=== PATIENT | female | born 1955 | race Caucasian/White ===

== ENCOUNTER → 2018-08-30 | Outpatient (CLI) | payer OTHER ==
[~2018-08-30] MED LIST: ALLOPURINOL PO; AMLO-552 PO; ASPI-715 PO; CALC667T3 PO; CELE-1 PO; CHOL200038 PO; CYMBALTA PO; DUL30 PO; DULO60CA51 PO; ERG400 PO; GADOBENATE 529MG/1ML 15ML VIAL IVP ONE; HYDR-3503 PO; LISI-368 PO; MAXIDE PO; NS(*) 0.9% 50 ML BAG 0 ML ONE; ONDA4TAB PO; PER PO; TAMO20TA19 PO; VITA-324 PO; ZONI50CA PO; [UNRECOGNIZED DRUG - CODE] PO
--- NOTE | 2018-08-31 09:27 | RADIOLOGY IMAGING REPORT ---
FACILITY: [facility] PATIENT NAME: REECE DESHPANDE : [id number] MR: [id number] V: [id number] EXAM DATE: [id number] ORDERING PHYSICIAN: KEEGAN BLACKWELL TECHNOLOGIST: Paola Ruiz PROCEDURE:BILATERAL DIAGNOSTIC DIGITAL MAMMOGRAM WITH CAD ASSISTED INTERPRETATION & 3D TOMOSYNTHESIS COMPARISON:Prior mammograms 04/14/15, 03/02/13, 02/23/12. INDICATIONS:left breast pain and swelling approximate 3 o'clock position, prior history of Right breast cancer. FINDINGS: Mildly dense fibroglandular tissue is seen throughout the breasts. The parenchymal pattern has remained stable allowing for difference in mammographic technique & patient positioning. There is no evidence of malignant appearing mass, malignant appearing calcifications or other secondary sign of malignancy in either breast. Today's Left breast Ultrasound demonstrated an ovoid cyst in the 3 o'clock position of the Left breast 2cm from the nipple and an additional smaller ovoid cyst in the 3 o'clock position of the Left breast 1cm from the nipple. This may account for patient's palpable findings clinical follow-up recommended. DIAGNOSTIC CATEGORY 2--BENIGN FINDING. RECOMMENDATIONS: ROUTINE MAMMOGRAM AND CLINICAL EVALUATION. CLINICAL EVALUATION. IMPRESSION: BIRADS 2: Benign finding. Mammograms appear stable. 2 small cysts were identified in Today's Left breast Ultrasound in the 3 o'clock position of the Left breast. Clinical follow-up recommended for patient's palpable finding. Dictated by: Kay Gonzales M.D. on 08/30/2018 at 16:41 Transcribed by: RHONDA on 08/31/2018 at 8:14 Approved by: Kay Gonzales M.D. on 08/31/2018 at 9:26 [facility]
--- NOTE | 2018-08-31 09:27 | RADIOLOGY IMAGING REPORT ---
FACILITY: [facility] [place] PATIENT NAME: REECE DESHPANDE : [id number] MR: [id number] V: [id number] EXAM DATE: [id number] ORDERING PHYSICIAN: KEEGAN BLACKWELL TECHNOLOGIST: Ruthann Bush RDMS PROCEDURE:US LEFT BREAST COMPARISON:None. INDICATIONS:History of Right breast cancer with pain and palpable abnormality 3 o'clock position of the Left breast. FINDINGS: In the 3 o'clock position of the Left breast 2cm from the nipple there is a 1 x 0.4 x 0.6cm ovoid cyst. In the 3 o'clock position of the Left breast 1cm from the nipple is a 4.8 x 2.2 x 3.9mm cyst. This may account for patient's palpable findings. Clinical follow-up recommended. DIAGNOSTIC CATEGORY 2--BENIGN FINDING. RECOMMENDATIONS: ROUTINE MAMMOGRAM AND CLINICAL EVALUATION. CLINICAL EVALUATION. IMPRESSION: BIRADS 2: Benign finding. There are 2 cysts identified in the 3 o'clock position of the Left breast. Clinical follow-up recommended for patient's palpable findings. Dictated by: Kay Gonzales M.D. on 08/30/2018 at 16:42 Transcribed by: RHONDA on 08/31/2018 at 8:25 Approved by: Kay Gonzales M.D. on 08/31/2018 at 9:26 [facility]
== END ==
LOC: MRI 00:38
PROVIDERS: ATTEND Family Medicine
DX: N60.02 Solitary cyst of left breast (principal); N64.4 Mastodynia; N62 Hypertrophy of breast
CPT/HCPCS: 77062; 77066; A9577; J7050

== ENCOUNTER → 2018-09-28 | Outpatient (CLI) | payer OTHER ==
[~2018-09-28] MED LIST changes: -GADOBENATE 529MG/1ML 15ML VIAL IVP ONE; -NS(*) 0.9% 50 ML BAG 0 ML ONE
--- NOTE | 2018-09-28 15:06 | RADIOLOGY IMAGING REPORT ---
FACILITY: [facility] PATIENT NAME: Kenyon Bishop : 1955 MR: [id number] V: [id number] EXAM DATE: ORDERING PHYSICIAN: KEEGAN BLACKWELL TECHNOLOGIST: Location: [facility] Patient: Kenyon Bishop : 1955 Visit/Account:[id number] Date of Sevice: 09/28/2018 Technique: CHEST PA AND LAT HISTORY: Left-sided chest pain Comparison studies: Chest radiographs December 05, 2015 FINDINGS: No acute airspace consolidation. No pleural effusion. The cardiothymic silhouette is unch anged. IMPRESSION: 1. No acute cardiopulmonary process. Report Dictated By: Oneil Montano DO at 09/28/2018 3:00 PM Report E-Signed By: Oneil Montano DO at 09/28/2018 3:02 PM WSN:[email or web address]
== END ==
LOC: RAD 12:42
PROVIDERS: ATTEND Family Medicine
DX: R07.89 Other chest pain (principal)
CPT/HCPCS: 71046